=== PATIENT | female | born 1975 | race Caucasian/White ===

== ENCOUNTER 2017-09-28 13:29 | Emergency (ER) | payer MEDICAID, OTHER ==
[2017-09-28] MEDS ORDERED: Diphtheria,Pertussis(Acell),Tetanus Vaccine 0.5 ML SDV IM ONE (14:15)
[2017-09-28] MEDS ORDERED: Bacitracin Oint 1 GM U/D Packet TOP ONE (14:15)
--- NOTE | 2017-09-28 14:23 | EDM.PDOC ---
<Jessica Rae - Last Filed: 09/28/17 14:49> ED HPI GENERAL MEDICAL PROBLEM - General Chief Complaint: Laceration Stated Complaint: RIGHT CALF LACERATION/PUNCTURE Time Seen by Provider: 09/28/17 14:00 - Related Data Allergies Allergy/AdvReac Type Severity Reaction Status Date / Time Penicillins Allergy Swelling Verified 09/28/17 13:42 Home Meds: Home Meds ClonazePAM [KlonoPIN] 0.5 mg PO DAILY 09/28/17 [History] Gabapentin [Neurontin] 300 mg PO TID PRN 09/28/17 [History] Levomilnacipran Hydrochloride [Fetzima] 120 mg PO DAILY 09/28/17 [History] ED SKIN PROCEDURES - Laceration/Wound Repair Right Lower Leg Lac/Wound length In cm: 4 Appearance: Subcutaneous Distal NVT: Neuro & Vascular Intact, No Tendon Injury Anesthetic Type: Local Local Anesthesia - Lidocaine (Xylocaine): 1% Plain Local Anesthetic Volume: 2cc Closed with: Sutures Suture Size: other # of Sutures: 5 Progress/Comments: Wound cleansed with normal saline no foregn bodies appreciated. Wound edges approximated well and closed with #5 4-0 vicryl sutures. Pt tolerated well and instructed to keep clean, no swimming, suture removal in 7 days with primary care provider. Return to ED if signs or symptoms of infection. Bacitracin and dressing applied by nursing and Tetanus given by nursing Course - Vital Signs Last Recorded V/S: Last Vital Signs Temp 98.1 F 09/28/17 13:45 Pulse 71 09/28/17 13:45 Resp 16 09/28/17 13:45 BP 131/69 09/28/17 13:45 Pulse Ox 95 09/28/17 13:45 - Orders/Labs/Meds Orders: Active Orders 24 hr Category Date Time Status Vaccines to be Administered [RC] PER UNIT ROUTINE Care 09/28/17 14:15 Active Meds: Medications Discontinued Medications Generic Name Dose Route Start Last Admin Trade Name Freq PRN Reason Stop Dose Admin Bacitracin 1 dose 09/28/17 14:15 09/28/17 14:43 Bacitracin Oint 1 Gm TOP 09/28/17 14:16 1 dose ONETIME ONE Administration Diphtheria/Tetanus/Acell Pertussis 0.5 ml 09/28/17 14:15 09/28/17 14:44 Adacel IM 09/28/17 14:16 0.5 ml .ONCE ONE Administration Lidocaine HCl 5 ml 09/28/17 14:15 09/28/17 14:43 Xylocaine-Mpf 1% INJECT 09/28/17 14:16 5 ml ONETIME ONE Administration Departure - Departure Disposition: Home, Self-Care 01 Clinical Impression: Laceration of right lower leg - Discharge Information Instructions: Laceration Care, Adult Referrals: PCP,None [Primary Care Provider] - Forms: ED Department Discharge Care Plan Goals: Keep wound covered and clean while healing. Sutures can be removed in 7 days, recheck sooner if concerns of infection or not healing satisfactorily. - My Orders Last 24 Hours: My Active Orders 09/28/17 14:15 Vaccines to be Administered [RC] PER UNIT ROUTINE - Assessment/Plan Last 24 Hours: My Active Orders 09/28/17 14:15 Vaccines to be Administered [RC] PER UNIT ROUTINE <Maxwell Vergara - Last Filed: 09/29/17 11:23> ED HPI GENERAL MEDICAL PROBLEM - General Source of Information: Reports: Patient, Family History Limitations: Reports: No Limitations - History of Present Illness INITIAL COMMENTS - FREE TEXT/NARRATIVE: 42-year-old female who lacerated the dorsal aspect of her right leg on a metal chair. No other injury. Onset: Sudden Duration: Hour(s): (Within the last 2 hours) Location: Reports: Lower Extremity, Right Past Medical History [employer] History: Reports: Musculoskeletal History: Reports: Fracture Other Musculoskeletal History: FRACTURED FINGER Psychiatric History: Reports: Depression - Past Surgical History HEENT Surgical History: Reports: Adenoidectomy, Tonsillectomy GI Surgical History: Reports: Appendectomy Social & Family History - Tobacco Use Smoking Status *Q: Light Tobacco Smoker Years of Tobacco use: 30 Packs/Tins Daily: 1 - Caffeine Use Caffeine Use: Reports: Coffee, Energy Drinks, Soda - Recreational Drug Use Recreational Drug Use: No ED ROS GENERAL - Review of Systems Review Of Systems: See Below Constitutional: Denies: Fever, Chills Respiratory: Reports: No Symptoms Neurological: Reports: No Symptoms Psychiatric: Reports: No Symptoms ED EXAM, SKIN/RASH Exam: See Below Exam Limited By: No Limitations General Appearance: Alert, No Apparent Distress Respiratory/Chest: No Respiratory Distress Extremities: Other (Remainder of exam is limited to the right posterior lower leg. There is a 3 cm transverse laceration, shallow but into the subcutaneous tissue.) Course - Orders/Labs/Meds Meds: Medications Discontinued Medications Generic Name Dose Route Start Last Admin Trade Name Angel PRN Reason Stop Dose Admin Bacitracin 1 dose 09/28/17 14:15 09/28/17 14:43 Bacitracin Oint 1 Gm TOP 09/28/17 14:16 1 dose ONETIME ONE Administration Diphtheria/Tetanus/Acell Pertussis 0.5 ml 09/28/17 14:15 09/28/17 14:44 Adacel IM 09/28/17 14:16 0.5 ml .ONCE ONE Administration Lidocaine HCl 5 ml 09/28/17 14:15 09/28/17 14:43 Xylocaine-Mpf 1% INJECT 09/28/17 14:16 5 ml ONETIME ONE Administration Departure - Departure Time of Disposition: 15:09 Condition: Good
== END 2017-09-28 15:09 | disposition home or self-care (01) ==
LOC: JP.ED 13:29
DX: S81.811A Laceration without foreign body, right lower leg, initial encounter (principal); F17.210 Nicotine dependence, cigarettes, uncomplicated; Z23 Encounter for immunization; Z79.899 Other long term (current) drug therapy; Z88.0 Allergy status to penicillin; W26.8XXA Contact with other sharp object(s), not elsewhere classified, initial encounter
CPT/HCPCS: 12002; 90471; 90715; 99283-25